=== PATIENT | male | born 1950 ===

== ENCOUNTER 2020-12-16 07:18 | Day surgery (SDC) | payer MEDICARE ==
[~2020-12-16 07:18] MED LIST: SODIUM CHLORIDE 0.9% 1000 ML 1,000 ML IV SCH; WATER FOR IRRIG STERILE 1,000 ML BOTTLE ONE; WATER FOR IRRIG STERILE 250 ML BOTTLE IR ONE
--- NOTE | 2020-12-16 08:02 | Anesthesia Consultation ---
Anesthesia Consult and Med Hx Date of service: 12/16/20 - Airway Anesthetic Teeth Evaluation: Good, Caps ROM Head & Neck: Inadequate (lrom, occ pain) Mental/Hyoid Distance: Adequate Mallampati Class: Class I Intubation Access Assessment: Good - Pulmonary Exam CTA: Yes - Cardiac Exam Cardiac Exam: RRR - Pre-Operative Health Status ASA Pre-Surgery Classification: ASA3 Proposed Anesthetic Plan: MAC - Pulmonary Hx Smoking: Yes COPD: Yes - Cardiovascular System Hx Hypertension: Yes Hx Coronary Artery Disease: Yes Hx Heart Attack/AMI: Yes Hx Angina: No Hx Percutaneous Transluminal Coronary Angioplasty (PTCA): Yes Hx Peripheral Vascular Disease: Yes - Gastrointestinal Hx Gastroesophageal Reflux Disease: Yes
--- NOTE | 2020-12-16 08:05 | Anesthesia Day of Surgery ---
Anesthesia Day of Surgery - Day of Surgery Patient Examined: Yes Patient H&P Reviewed: Yes Patient is NPO: Yes Beta Blockers: Yes Cardiac Clearance: Yes
[2020-12-16] MEDS ORDERED: propofoL 200 MG/20 ML VIAL IV ONE ×2 (08:10→09:20)
--- NOTE | 2020-12-16 09:45 | Short Stay Summary ---
Short Stay Documentation Date of service: 12/16/20 - History H&P: obtained from office - Allergies and Medications Current Medications: Allergies No Known Allergies Allergy (Verified 12/15/20 10:19) Home Medications Medication Instructions Recorded Confirmed Last Taken Type ALPRAZolam 1 mg PO BID 12/16/20 12/16/20 12/15/20 History Metoprolol Tartrate 25 mg PO BID 12/16/20 12/16/20 12/15/20 History Plavix 75 mg PO DAILY 12/16/20 12/16/20 12/09/20 History cloNIDine 0.1 mg PO DAILY 12/16/20 12/16/20 Unknown History Active Medications Sodium Chloride (Nacl 0.9% 1000 Ml) 1,000 mls @ 50 mls/hr IV DIRECT LAURA Last Admin: 12/16/20 08:27 Dose: 50 mls/hr Documented by: - Brief post op/procedure progress note Date of procedure: 12/16/20 Findings: see dictations Estimated blood loss: none Pathology: list (Ascending colon polyp) Specimen disposition: to lab Condition: stable - Disposition Condition at discharge: Good Disposition: DC-01 TO HOME OR SELFCARE - Discharge Diagnoses (1) Dysphagia Status: Acute (2) Colon cancer screening Status: Acute Short Stay Discharge Plan Activity: other (No driving for 24 hours) Weight Bearing Status: Full Weight Bearing Diet: regular Follow up with: RAMSEY ROMERO MD [Primary Care Provider] - 7 Days
--- NOTE | 2020-12-16 09:48 | Operative Report ---
Operative Report Operative Report: Date of procedure: 12/16/2020 Preprocedure diagnosis: Colon cancer screening. No prior studies. Post procedure diagnosis: Diminutive ascending colon polyp. Procedure: Colonoscopy to the cecum with cold snare polypectomy Endoscopist: Dr. Bright Anesthesia: Monitored anesthesia care per anesthesia department Estimated blood loss: 0 Medications: Monitored anesthesia care. See separate report by anesthesia for details. After careful discussion of the nature and purpose of the procedure as well as details of the technique risks benefits and alternatives the patient gave consent. Please see recent history and physical from the office. The patient was placed in the left lateral decubitus position and medicated per anesthesia. A rectal exam was performed sphincter tone was normal there were no masses palpable. The [employer] 570 scope was passed transanally and advanced under continuous direct vision without difficulty to the cecum. The colon was well prepared. The cecum was normal. The ascending colon revealed a 5 mm sessile bland appearing polyp. The polyp was removed with cold snare resection and retrieved by suction and fragments. The transverse colon, descending colon, and sigmoid colon were normal. The rectum was normal on forward and retroflexed views. The procedure was well-tolerated overall and the patient was observed in recovery. Conclusions: Diminutive ascending colon polyp, otherwise normal study. Plan: Await pathology. Follow-up colonoscopy in 5 to 10 years depending upon the pathology. Signed electronically: Angel Bright M.D.
--- NOTE | 2020-12-16 09:51 | Operative Report ---
Operative Report Operative Report: Date of procedure: 12/16/2020 Procedure: Esophagogastroduodenoscopy with balloon dilation of the cricopharyng eal area to 15 mm. 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 Endoscopist: Dr. Bright Anesthesia: Monitored anesthesia care per anesthesia department Medications: Propofol per anesthesia Estimated blood loss: 0 After careful discussion of the nature and purpose of the procedure as well as details the technique risks benefits and alternatives consent was obtained. The patient was placed in the left lateral decubitus position and medicated per anesthesia. The tip of the [employer] 570 video scope was passed per orum under direct vision into the esophagus and advanced into the stomach and descending duodenum. The descending duodenum the duodenal bulb and pylorus were symmetrical and normal. The scope was withdrawn into the stomach and the stomach then gently insufflated with air. The antrum was normal. The stomach was further insufflated and the scope was then retroflexed and partially withdrawn. The cardia, fundus, and body of the stomach were within normal limits and easily distensible.The scope was then withdrawn in the forward positi on. The esophagogastric junction was at 39 cm. The esophageal body was normal throughout. There was a possible small diverticulum in the cervical esophagus but no definite stricture was visible. Balloon dilation was performed in the cervical region to 15 mm over 30 seconds. The procedure was was well tolerated and the patient was observed in recovery. 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 Plan: Repeat dilation as needed. Office follow-up in 6 months. Electronically signed: Angel Bright MD
[2020-12-16 10:57] VITALS: BP 132/65
--- NOTE | 2020-12-16 11:52 | Post Anesthesia Evaluation ---
- Post Anesthesia Evaluation Patient Participated: Yes Airway Patent: Yes Stable Respiratory Function: Yes Nausea/Vomiting: No Temp > 96.8F: Yes Pain Manageable: Yes Adequeate Hydration: Yes Anesthesia Complications: No
== END 2020-12-16 10:40 | disposition home or self-care (01) ==
LOC: GIO 07:18
PROVIDERS: ATTEND Internal Medicine Gastroenterology
DX: Z12.11 Encounter for screening for malignant neoplasm of colon (principal); R13.10 Dysphagia, unspecified; Q39.6 Congenital diverticulum of esophagus; D12.2 Benign neoplasm of ascending colon; F17.210 Nicotine dependence, cigarettes, uncomplicated; I25.10 Atherosclerotic heart disease of native coronary artery without angina pectoris; E78.00 Pure hypercholesterolemia, unspecified; I10 Essential (primary) hypertension; J43.9 Emphysema, unspecified; K21.9 Gastro-esophageal reflux disease without esophagitis; F41.9 Anxiety disorder, unspecified; Z79.899 Other long term (current) drug therapy
CPT/HCPCS: 43249; 45385; 88305; C1726; J2704; J7030